=== PATIENT | female | born 1955 | race African-American/Black ===

== ENCOUNTER 2022-11-19 12:09 | Emergency (ER) | payer OTHER ==
[~2022-11-19] VITALS: Ht 170.2 cm; Wt 87.1 kg
[2022-11-19 12:14] VITALS: BP_SYST 144; PULSE 84; RESP 19; TEMP 98; O2SAT 97
[2022-11-19] MEDS ORDERED: IBUPROFEN 800 MG TABLET PO ONE (13:30)
[2022-11-19] MEDS ORDERED: IBUP-1969 PO (13:38)
[2022-11-19] MEDS ORDERED: SOM350 PO (13:38)
[2022-11-19 14:04] VITALS: BP_SYST 125; PULSE 75; RESP 16; TEMP 97.6; O2SAT 97
== END 2022-11-19 13:56 | disposition home or self-care (01) ==
LOC: SED 12:09
DX: S43.401A Unspecified sprain of right shoulder joint, initial encounter (principal); S00.93XA Contusion of unspecified part of head, initial encounter; Z88.8 Allergy status to other drugs, medicaments and biological substances; Z79.899 Other long term (current) drug therapy; V49.40XA Driver injured in collision with unspecified motor vehicles in traffic accident, initial encounter; Y93.89 Activity, other specified; Y92.89 Other specified places as the place of occurrence of the external cause; Y99.8 Other external cause status
CPT/HCPCS: 70450-TC; 71045; 73030; 76376; 99284